=== PATIENT | male | born 1940 | race Caucasian/White ===

== ENCOUNTER 2017-09-18 10:58 | Emergency (ER) | payer MEDICARE, OTHER ==
[~2017-09-18] VITALS: Ht 180.3 cm; Wt 99.0 kg
[~2017-09-18 10:58] MED LIST: ASPI81TA52 PO; CLOP75TA35 PO; COLC0.6T69 PO; EVOL140P SQ; HYDR12.55 PO; INDO25CA PO; LISI-600 PO; METO25TA6 PO; NITR0.4T51 SL
[2017-09-18] MEDS ORDERED: NAPR-56 PO (11:36)
[2017-09-18] MEDS: HYDROcodone/acetaminophen 5mg/325mg tablet PO ONE (11:56)
[2017-09-18 12:03] VITALS: BP 110/65
== END 2017-09-18 12:11 | disposition home or self-care (01) ==
LOC: ER 10:59
DX: M25.462 Effusion, left knee (principal); M17.12 Unilateral primary osteoarthritis, left knee; I25.10 Atherosclerotic heart disease of native coronary artery without angina pectoris; E78.00 Pure hypercholesterolemia, unspecified; M10.9 Gout, unspecified; I10 Essential (primary) hypertension; Z95.1 Presence of aortocoronary bypass graft; Z98.890 Other specified postprocedural states; Z79.82 Long term (current) use of aspirin; Z79.899 Other long term (current) drug therapy
CPT/HCPCS: 73564; 99284

== ENCOUNTER 2019-04-10 21:00 | Emergency (ER) | payer OTHER ==
[~2019-04-10] VITALS: Ht 180.3 cm; Wt 113.6 kg
[~2019-04-10 21:00] MED LIST changes: +INDO-12 PO; -INDO25CA PO
[2019-04-10] MEDS ORDERED: TRAM50TA2 PO (22:22)
[2019-04-10 22:38] VITALS: BP 163/83
== END 2019-04-10 22:43 | disposition home or self-care (01) ==
LOC: ER 21:00
DX: M25.562 Pain in left knee (principal); M25.662 Stiffness of left knee, not elsewhere classified; I25.10 Atherosclerotic heart disease of native coronary artery without angina pectoris; E78.00 Pure hypercholesterolemia, unspecified; I10 Essential (primary) hypertension; Z95.1 Presence of aortocoronary bypass graft; Z98.890 Other specified postprocedural states; Z60.2 Problems related to living alone; Z79.82 Long term (current) use of aspirin; Z79.899 Other long term (current) drug therapy
CPT/HCPCS: 99283

== ENCOUNTER 2019-07-05 01:05 | Emergency (ER) | payer OTHER ==
[~2019-07-05] VITALS: Ht 180.3 cm; Wt 117.0 kg
[~2019-07-05 01:05] MED LIST changes: -EVOL140P SQ; +EVOL140P3 SQ
--- NOTE | 2019-07-05 01:48 | NUR ---
The patient was brought in via EMS for left leg pain but during the triage made suicidal statements and was brought to bed 24 in the ER overflow. He was very friendly and cooperative. He stated that he has had pain all week in his left knee and has been out of his ultram. He stated [facility] and felt he was getting his pain needs addressed. He stated that he lives alone in a trailer and feels very isolated and lonely. He stated that in the past week he has not been able to drive because of the knee pain. He reports that he has a history of depression but has never had a suicide attempt. He stated that in recent days he has been wanting to kill himself and had been thinking about [facility]. He stated "If I had a gun I'd blow my brains out" He stated he doesn't own a gun because of those kinds of thoughts. He reports that he has been having dry heaves. He reports that his pain is in his left knee. He stated that he was supposed to have an MRI of the left knee next week.
--- NOTE | 2019-07-05 02:47 | NUR ---
The patient was reminded that a urine sample is needed.
[2019-07-05] MEDS ORDERED: FLO0.4C PO (02:59)
[2019-07-05] MEDS ORDERED: CHOL200016 PO (02:59)
[2019-07-05 03:01] LABS: BASOPHILS # (AUTO) 0.1 X10'3 (0-0.2); BASOPHILS % (AUTO) 0.7 % (0-1); EOSINOPHILS % (AUTO) 0.2 % (0-6); HEMATOCRIT 36.4 % (42.0-52.0); HEMOGLOBIN 12.5 g/dl (14.0-17.9); LYMPHOCYTES # (AUTO) 0.9 X10'3 (1.1-4.8); LYMPHOCYTES % (AUTO) 9.2 % (21-51); MEAN CORPUSCULAR HGB CONC 34.3 g/dL (33.0-36.5); MEAN CORPUSCULAR VOLUME 96.4 FL (78-98); MEAN PLATELET VOLUME 10.6 FL (7.4-10.4); MONOCYTES # (AUTO) 4.2 X10'3 (0-0.9); MONOCYTES % (AUTO) 44.5 % (2-12); NEUTROPHILS # (AUTO) 4.3 X10'3 (1.8-7.7); NEUTROPHILS % (AUTO) 45.4 % (42-75); PLATELET COUNT 135 X10'3 (140-440); RED BLOOD COUNT 3.78 X10'6 (4.70-6.10); RED CELL DISTRIBUTION WIDTH 14.8 % (11.5-14.5); WHITE BLOOD COUNT 9.4 X10'3 (4.5-11.0)
[2019-07-05] MEDS ORDERED: ALLO100T PO (03:02)
[2019-07-05] MEDS ORDERED: ISOS60TA4 PO (03:04)
[2019-07-05] MEDS ORDERED: ASPI-1264 PO (03:08)
[2019-07-05 03:20] LABS: ALANINE AMINOTRANSFERASE 35 U/L (12-78); ALBUMIN 3.3 G/DL (3.4-5.0); ALBUMIN/GLOBULIN RATIO 0.8 (1.1-1.5); ALKALINE PHOSPHATASE 58 IU/L (46-116); ANION GAP 8 (8-16); ASPARTATE AMINO TRANSFERASE 29 U/L (10-37); BILIRUBIN,TOTAL 0.8 MG/DL (0.1-1.0); BLOOD UREA NITROGEN 23 MG/DL (7-18); BUN/CREATININE RATIO 22.5 (5.4-32.0); CALCIUM 8.8 MG/DL (8.5-10.1); CHLORIDE 107 MMOL/L (99-107); CREATININE 1.02 MG/DL (0.60-1.10); GLUCOSE 134 MG/DL (70-104); POTASSIUM 4.3 MMOL/L (3.5-5.1); SODIUM 140 MMOL/L (135-145); TOTAL CARBON DIOXIDE 24.6 MMOL/L (24-32); TOTAL PROTEIN 7.2 G/DL (6.4-8.2); eGFR 71 ML/MIN
[2019-07-05 03:30] LABS: ETHANOL < 0.010 GM/DL (0.0-0.010)
--- NOTE | 2019-07-05 03:38 | NUR ---
Dr. Sainz at the bedside. The patient provided a urine sample. His med rec was completed.
[2019-07-05] MEDS ORDERED: acetaminophen 325mg tablet PO PRN (03:45)
[2019-07-05 03:53] LABS: URINE AMPHETAMINE SCREEN NEGATIVE (Neg); URINE BARBITUATE SCREEN NEGATIVE (Neg); URINE BENZODIAZEPINES SCREEN NEGATIVE (Neg); URINE CANNABINOID SCREEN NEGATIVE (Neg); URINE COCAINE SCREEN NEGATIVE (Neg); URINE METHADONE SCREEN NEGATIVE (Neg); URINE OPIATE SCREEN NEGATIVE (Neg); URINE PHENCYCLIDINE SCREEN NEGATIVE (Neg)
--- NOTE | 2019-07-05 04:16 | NUR ---
pt packet faxed to [facility]
[2019-07-05 05:38] VITALS: BP_DIAS 88
--- NOTE | 2019-07-05 07:00 | NUR ---
PT RESTING ON BACK WITH EYES OPEN NO NEEDS AT THIS TIME
[2019-07-05 07:23] LABS: LARGE PLATELETS FEW; PLATELET ESTIMATE NORMAL; TOTAL CELLS COUNTED 100
[2019-07-05 07:54] VITALS: BP_SYST 145
[2019-07-05] MEDS ORDERED: metoprolol tartrate 12.5mg (1/2 tablet) PO SCH (08:00)
[2019-07-05] MEDS ORDERED: allopurinol 300 MG tablet PO SCH (08:00)
[2019-07-05] MEDS ORDERED: isosorbide mononitrate 30mg tab.SR.24H PO SCH (08:00)
[2019-07-05] MEDS ORDERED: tamsulosin 0.4mg capsule PO SCH (08:00)
[2019-07-05] MEDS ORDERED: lisinopril 20mg tablet PO SCH (08:00)
[2019-07-05] MEDS ORDERED: aspirin 325mg tablet PO SCH (08:00)
[2019-07-05] MEDS ORDERED: clopidogrel 75mg tablet PO SCH (08:00)
--- NOTE | 2019-07-05 08:30 | NUR ---
PT SITTING UP EATING BREAKFAST. NO NEEDS AT THIS TIME
--- NOTE | 2019-07-05 09:39 | NUR ---
PT RESTING ON BACK, EYES CLOSED, RR EQUAL AND UNLABORED
--- NOTE | 2019-07-05 10:51 | NUR ---
PT AWAKE IN BED. NO NEEDS AT THIS TIME
== END 2019-07-05 14:28 | disposition home or self-care (01) ==
LOC: ER 01:06
DX: F32.9 Major depressive disorder, single episode, unspecified (principal); R45.851 Suicidal ideations; M25.561 Pain in right knee; G89.29 Other chronic pain; I25.10 Atherosclerotic heart disease of native coronary artery without angina pectoris; E78.00 Pure hypercholesterolemia, unspecified; I10 Essential (primary) hypertension; M19.90 Unspecified osteoarthritis, unspecified site; M10.9 Gout, unspecified; F41.0 Panic disorder [episodic paroxysmal anxiety]; Z95.1 Presence of aortocoronary bypass graft; Z98.890 Other specified postprocedural states; Z79.82 Long term (current) use of aspirin; Z79.899 Other long term (current) drug therapy
CPT/HCPCS: 36415; 80053; 80305; 80320; 84443; 85025; 99284

== ENCOUNTER 2019-09-18 07:07 | Day surgery (SDC) | payer MEDICARE, OTHER ==
[2019-09-17 10:34] LABS: BASOPHILS # (AUTO) 0.1 X10'3 (0-0.2); EOSINOPHILS # (AUTO) 0.2 X10'3 (0-0.9); EOSINOPHILS % (AUTO) 2.9 % (0-6); HEMATOCRIT 41.4 % (42.0-52.0); HEMOGLOBIN 13.8 g/dl (14.0-17.9); LYMPHOCYTES # (AUTO) 1.4 X10'3 (1.1-4.8); LYMPHOCYTES % (AUTO) 19.7 % (21-51); MEAN CORPUSCULAR HEMOGLOBIN 32.1 PG (27.0-31.0); MEAN CORPUSCULAR HGB CONC 33.2 g/dL (33.0-36.5); MEAN CORPUSCULAR VOLUME 96.6 FL (78-98); MEAN PLATELET VOLUME 10.4 FL (7.4-10.4); MONOCYTES # (AUTO) 1.9 X10'3 (0-0.9); MONOCYTES % (AUTO) 27.2 % (2-12); NEUTROPHILS # (AUTO) 3.5 X10'3 (1.8-7.7); NEUTROPHILS % (AUTO) 49.2 % (42-75); PLATELET COUNT 203 X10'3 (140-440); RED BLOOD COUNT 4.29 X10'6 (4.70-6.10); RED CELL DISTRIBUTION WIDTH 14.9 % (11.5-14.5); WHITE BLOOD COUNT 7.1 X10'3 (4.5-11.0)
[2019-09-17 10:44] LABS: ALBUMIN 3.6 G/DL (3.4-5.0); ANION GAP 7 (8-16); BLOOD UREA NITROGEN 9 MG/DL (7-18); CALCIUM 9.4 MG/DL (8.5-10.1); CHLORIDE 106 MMOL/L (99-107); GLUCOSE 152 MG/DL (70-104); POTASSIUM 4.1 MMOL/L (3.5-5.1); SODIUM 139 MMOL/L (135-145); eGFR 73 ML/MIN
[2019-09-17 10:45] LABS: PARTIAL THROMBOPLASTIN TIME 27 SECONDS (22-32)
[2019-09-17 11:42] LABS: TOTAL CELLS COUNTED 100
[2019-09-17 11:44] LABS: ELLIPTOCYTES FEW; PLATELET ESTIMATE NORMAL; SMUDGE CELLS FEW; TEAR DROP CELLS FEW
[~2019-09-18] VITALS: Ht 180.3 cm; Wt 112.4 kg
[2019-09-18] VITALS (13 sets, daily range): BP systolic 100–163; BP diastolic 59–83
[~2019-09-18 07:07] MED LIST changes: +ALLO100T PO; +ASPI-1264 PO; -ASPI81TA52 PO; +CHOL200016 PO; -COLC0.6T69 PO; +FLO0.4C PO; -HYDR12.55 PO; -INDO-12 PO; +ISOS60TA4 PO
[2019-09-18] MEDS ORDERED: normal saline 1,000 ML IV SCH (07:20)
[2019-09-18] MEDS ORDERED: diphenhydrAMINE 25mg capsule PO PRN (07:20)
[2019-09-18] MEDS ORDERED: LORazepam 0.5 MG tablet PO PRN (07:20)
[2019-09-18] MEDS ORDERED: LIDOcaine/PRILOcaine 5gm cream TP ONE (07:45)
[2019-09-18] MEDS ORDERED: METO25TA6 PO (08:07)
[2019-09-18] MEDS ORDERED: COLC0.6T69 PO (08:07)
[2019-09-18] MEDS ORDERED: ASPI-611 PO (08:07)
[2019-09-18] MEDS ORDERED: midazolam 2 mg/2 ml injection ONE (08:53)
[2019-09-18] MEDS ORDERED: nitroGLYCERIN-Tridil 50MG/D5W 250 ML IV ONE (08:53)
[2019-09-18] MEDS ORDERED: verapamil 2.5 mg/ml inj IV ONE (08:53)
[2019-09-18] MEDS ORDERED: heparin 1,000unit/ml 10ml vial 10 ML ONE (08:54)
[2019-09-18] MEDS ORDERED: fentaNYL/PF 50MCG/1 ML 2ML syringe ONE (08:54)
[2019-09-18] MEDS ORDERED: iohexol 350MG/ML 100ml bottle IV ONE (08:54)
[2019-09-18] MEDS ORDERED: iohexol 350 MG/ML 50ML vial IV ONE ×2 (08:54→09:37)
[2019-09-18] MEDS ORDERED: LIDOcaine 1% (10mg/ml)w/preservative injection 20ml MDV ONE (08:54)
== END 2019-09-18 17:00 | disposition home or self-care (01) ==
LOC: SSTAY O 07:07
PROVIDERS: ATTEND Internal Medicine Cardiovascular Disease
DX: R06.02 Shortness of breath (principal); T82.868A Thrombosis due to vascular prosthetic devices, implants and grafts, initial encounter; I25.10 Atherosclerotic heart disease of native coronary artery without angina pectoris; E78.5 Hyperlipidemia, unspecified; F32.9 Major depressive disorder, single episode, unspecified; I10 Essential (primary) hypertension; M19.90 Unspecified osteoarthritis, unspecified site; M10.9 Gout, unspecified; E66.9 Obesity, unspecified; Z68.34 Body mass index [BMI] 34.0-34.9, adult; Z95.1 Presence of aortocoronary bypass graft; Y83.2 Surgical operation with anastomosis, bypass or graft as the cause of abnormal reaction of the patient, or of later complication, without mention of misadventure at the time of the procedure; Y92.89 Other specified places as the place of occurrence of the external cause; Z79.01 Long term (current) use of anticoagulants; Z79.899 Other long term (current) drug therapy
CPT/HCPCS: 80048; 85025; 85610; 85730; 93005; 93459; 93567; 99152; 99153; C1769; J1644; J2001; J2250; J3010; J7030; Q0163; Q9967; A4620; A6258; C1760; J3490

== ENCOUNTER → 2020-02-19 | Emergency (ER) | payer OTHER, MEDICARE ==
[~2020-02-19] VITALS: Ht 170.2 cm; Wt 116.8 kg
[~2020-02-19] MED LIST changes: -ASPI-1264 PO; +ASPI-611 PO; -CHOL200016 PO; +COLC0.6T69 PO; +CefTRIAXone/D5W-Rocephin 1gm 50 ML IV ONE; -FLO0.4C PO; +phenazopyridine 100mg tablet ONE; +phenazopyridine 100mg tablet PO ONE
[2020-02-19 03:55] LABS: CLARITY,URINE TURBID (Clear); COLOR,URINE RED (Yellow); GLUCOSE, URINE NEGATIVE (Neg); KETONES,URINE NEGATIVE (Neg); LEUKOCYTE ESTERASE ,URINE SMALL (Neg); NITRITES, URINE NEGATIVE (Neg); OCCULT BLOOD,URINE LARGE (Neg); PH,URINE 6.5 (4.8-8.0); PROTEIN,URINE >=300 mg/dl (Neg); UA COLLECTION TYPE NON-SPECIFIED; UROBILINOGEN,URINE 0.2 E.U/dL (0.2-1.0)
[2020-02-19 03:56] LABS: BASOPHILS # (AUTO) 0.1 X10'3 (0-0.2); BASOPHILS % (AUTO) 0.5 % (0-1); EOSINOPHILS # (AUTO) 0.1 X10'3 (0-0.9); EOSINOPHILS % (AUTO) 1.4 % (0-6); HEMATOCRIT 41.8 % (42.0-52.0); HEMOGLOBIN 13.9 g/dl (14.0-17.9); LYMPHOCYTES # (AUTO) 1.6 X10'3 (1.1-4.8); LYMPHOCYTES % (AUTO) 16.3 % (21-51); MEAN CORPUSCULAR HEMOGLOBIN 32.4 PG (27.0-31.0); MEAN CORPUSCULAR HGB CONC 33.2 g/dL (33.0-36.5); MEAN CORPUSCULAR VOLUME 97.6 FL (78-98); MEAN PLATELET VOLUME 10.9 FL (7.4-10.4); MONOCYTES # (AUTO) 3.1 X10'3 (0-0.9); MONOCYTES % (AUTO) 31.6 % (2-12); NEUTROPHILS % (AUTO) 50.2 % (42-75); PLATELET COUNT 150 X10'3 (140-440); RED BLOOD COUNT 4.28 X10'6 (4.70-6.10); WHITE BLOOD COUNT 9.9 X10'3 (4.5-11.0)
[2020-02-19 04:00] LABS: BACTERIA,URINE 3+ /HPF (Neg); RBC,URINE TNTC /HPF (0-2); SQUAMOUS EPITHELIAL CELL,UR FEW /LPF (FEW); WBC,URINE 50-100 /HPF (0-4)
[2020-02-19 04:02] LABS: ALANINE AMINOTRANSFERASE 38 U/L (12-78); ALKALINE PHOSPHATASE 64 IU/L (46-116); ANION GAP 15 (8-16); ASPARTATE AMINO TRANSFERASE 26 U/L (10-37); BILIRUBIN,TOTAL 0.7 MG/DL (0.1-1.0); BLOOD UREA NITROGEN 13 MG/DL (7-18); BUN/CREATININE RATIO 11.8 (5.4-32.0); CALCIUM 8.9 MG/DL (8.5-10.1); CHLORIDE 104 MMOL/L (99-107); GLUCOSE 157 MG/DL (70-104); POTASSIUM 3.9 MMOL/L (3.5-5.1); SODIUM 140 MMOL/L (135-145); TOTAL CARBON DIOXIDE 21.2 MMOL/L (24-32); eGFR 65 ML/MIN
[2020-02-19 04:15] LABS: PLATELET ESTIMATE NORMAL; TOTAL CELLS COUNTED 100
[2020-02-19 05:22] VITALS: BP 148/78
== END | disposition home or self-care (01) ==
LOC: ER 02:59
DX: N39.0 Urinary tract infection, site not specified (principal); R31.9 Hematuria, unspecified; I25.10 Atherosclerotic heart disease of native coronary artery without angina pectoris; E78.00 Pure hypercholesterolemia, unspecified; I10 Essential (primary) hypertension; M19.90 Unspecified osteoarthritis, unspecified site; F41.9 Anxiety disorder, unspecified; F32.9 Major depressive disorder, single episode, unspecified; Z95.1 Presence of aortocoronary bypass graft; Z60.2 Problems related to living alone; Z72.89 Other problems related to lifestyle; Z79.899 Other long term (current) drug therapy
CPT/HCPCS: 36415; 80053; 81001; 85007; 85025; 85610; 87088; 96365; 99284; J0696

== ENCOUNTER 2020-03-11 19:44 | Emergency (ER) | payer OTHER, MEDICARE ==
[~2020-03-11] VITALS: Ht 180.3 cm; Wt 112.0 kg
[~2020-03-11 19:44] MED LIST changes: -CefTRIAXone/D5W-Rocephin 1gm 50 ML IV ONE; -phenazopyridine 100mg tablet ONE; -phenazopyridine 100mg tablet PO ONE
[2020-03-11 20:16] VITALS: BP 162/90
== END 2020-03-11 21:47 | disposition home or self-care (01) ==
LOC: ER 19:44
DX: M79.89 Other specified soft tissue disorders (principal); I25.10 Atherosclerotic heart disease of native coronary artery without angina pectoris; E78.00 Pure hypercholesterolemia, unspecified; I10 Essential (primary) hypertension; M19.90 Unspecified osteoarthritis, unspecified site; M10.9 Gout, unspecified; F41.9 Anxiety disorder, unspecified; F32.9 Major depressive disorder, single episode, unspecified; Z98.890 Other specified postprocedural states; Z76.89 Persons encountering health services in other specified circumstances; Z72.89 Other problems related to lifestyle; Z79.82 Long term (current) use of aspirin; Z79.899 Other long term (current) drug therapy; Z60.2 Problems related to living alone
CPT/HCPCS: 51702; 99281; 99284

== ENCOUNTER 2021-02-24 18:12 | Emergency (ER) | payer OTHER, MEDICARE ==
[~2021-02-24] VITALS: Ht 180.3 cm; Wt 121.4 kg
[~2021-02-24 18:12] MED LIST changes: +CLOP75TA34 PO; -CLOP75TA35 PO; -COLC0.6T69 PO; +COLC0.6T72 PO; -ISOS60TA4 PO; +ISOS60TA71 PO; -LISI-600 PO; +LISI20TA28 PO; +LOP25T PO; -METO25TA6 PO
[2021-02-24 18:36] VITALS: BP 222/95
[2021-02-24] MEDS ORDERED: LIDOcaine 2% 10ml TOPICAL JELLY (Urojet) MM ONE (20:40)
== END 2021-02-24 21:37 | disposition home or self-care (01) ==
LOC: ER 18:12
DX: K59.00 Constipation, unspecified (principal); I25.10 Atherosclerotic heart disease of native coronary artery without angina pectoris; E78.00 Pure hypercholesterolemia, unspecified; I10 Essential (primary) hypertension; M19.90 Unspecified osteoarthritis, unspecified site; M10.9 Gout, unspecified; F41.9 Anxiety disorder, unspecified; F32.9 Major depressive disorder, single episode, unspecified; Z98.890 Other specified postprocedural states; Z72.89 Other problems related to lifestyle; Z60.2 Problems related to living alone; Z79.82 Long term (current) use of aspirin; Z79.899 Other long term (current) drug therapy
CPT/HCPCS: 99282

== ENCOUNTER 2021-09-29 14:43 | Emergency (ER) | payer OTHER, MEDICARE ==
[~2021-09-29] VITALS: Ht 180.3 cm; Wt 117.7 kg
[2021-09-29] MEDS ORDERED: tranexamic acid 100mg/ml inj. TP ONE (15:55)
[2021-09-29 17:23] VITALS: BP 149/79
== END 2021-09-29 17:24 | disposition home or self-care (01) ==
LOC: ER 14:44
DX: R04.0 Epistaxis (principal); I25.10 Atherosclerotic heart disease of native coronary artery without angina pectoris; E78.00 Pure hypercholesterolemia, unspecified; I10 Essential (primary) hypertension; M19.90 Unspecified osteoarthritis, unspecified site; F41.9 Anxiety disorder, unspecified; F32.A Depression, unspecified; Z98.890 Other specified postprocedural states; Z72.89 Other problems related to lifestyle; Z60.2 Problems related to living alone; Z79.82 Long term (current) use of aspirin; Z79.899 Other long term (current) drug therapy
CPT/HCPCS: 99284; J3490

== ENCOUNTER 2022-02-22 11:03 | Emergency (ER) | payer OTHER, MEDICARE ==
[~2022-02-22] VITALS: Ht 180.3 cm; Wt 111.8 kg
[2022-02-22 11:15] VITALS: BP 161/82
[2022-02-22] MEDS ORDERED: acetaminophen 325mg tablet PO ONE (13:55)
== END 2022-02-22 16:01 | disposition home or self-care (01) ==
LOC: ER 11:04
DX: G89.29 Other chronic pain (principal); M25.562 Pain in left knee; E78.00 Pure hypercholesterolemia, unspecified; I11.9 Hypertensive heart disease without heart failure; F31.9 Bipolar disorder, unspecified; Z98.890 Other specified postprocedural states; Z79.899 Other long term (current) drug therapy; Z79.82 Long term (current) use of aspirin
CPT/HCPCS: 73564; 99283; A6449

== ENCOUNTER 2022-06-28 10:05 | Emergency (ER) | payer OTHER, MEDICARE ==
--- NOTE | 2022-06-28 10:50 | NUR ---
Roe mckeon in [facility] - 06/28/22 at 1054 by PEPE n/a [phone] n/a [phone] n/a [phone]
--- NOTE | 2022-06-28 10:54 | NUR ---
na [id number]
--- NOTE | 2022-06-28 12:07 | NUR ---
NIL [id number]
== END 2022-06-28 12:17 | disposition left against medical advice (07) ==
LOC: ER 10:05
DX: R04.0 Epistaxis (principal); Z53.21 Procedure and treatment not carried out due to patient leaving prior to being seen by health care provider

== ENCOUNTER 2022-11-09 01:21 | Emergency (ER) | payer OTHER, MEDICARE ==
[~2022-11-09] VITALS: Ht 180.3 cm; Wt 107.7 kg
[2022-11-09 01:38] LABS: BASOPHILS # (AUTO) 0.1 X10'3 (0-0.2); BASOPHILS % (AUTO) 0.9 % (0-1); EOSINOPHILS # (AUTO) 0.1 X10'3 (0-0.9); HEMATOCRIT 41.4 % (42.0-52.0); HEMOGLOBIN 13.8 g/dl (14.0-17.9); LYMPHOCYTES # (AUTO) 1.9 X10'3 (1.1-4.8); LYMPHOCYTES % (AUTO) 20.9 % (21-51); MEAN CORPUSCULAR HGB CONC 33.3 g/dL (33.0-36.5); MONOCYTES # (AUTO) 3.3 X10'3 (0-0.9); MONOCYTES % (AUTO) 36.9 % (2-12); NEUTROPHILS # (AUTO) 3.6 X10'3 (1.8-7.7); NEUTROPHILS % (AUTO) 40.3 % (42-75); PLATELET COUNT 120 X10'3 (140-440); RED BLOOD COUNT 4.31 X10'6 (4.70-6.10); RED CELL DISTRIBUTION WIDTH 15.3 % (11.5-14.5); WHITE BLOOD COUNT 8.9 X10'3 (4.5-11.0)
[2022-11-09 01:49] LABS: ALANINE AMINOTRANSFERASE 42 U/L (12-78); ALBUMIN 3.7 G/DL (3.4-5.0); ALBUMIN/GLOBULIN RATIO 1.1 (1.1-1.5); ALKALINE PHOSPHATASE 73 IU/L (46-116); ANION GAP 11 (8-16); ASPARTATE AMINO TRANSFERASE 31 U/L (10-37); BILIRUBIN,TOTAL 0.3 MG/DL (0.1-1.0); BLOOD UREA NITROGEN 19 MG/DL (7-18); BUN/CREATININE RATIO 19.8 (10.0-20.0); CALCIUM 8.8 MG/DL (8.5-10.1); CHLORIDE 107 MMOL/L (99-107); CREATININE 0.96 MG/DL (0.60-1.10); GLUCOSE 139 MG/DL (70-104); SODIUM 141 MMOL/L (135-145); TOTAL CARBON DIOXIDE 23.1 MMOL/L (24-32); eGFR 76 ML/MIN
[2022-11-09 01:55] LABS: MAGNESIUM 2.3 MG/DL (1.5-2.4)
[2022-11-09 03:37] LABS: TOTAL CELLS COUNTED 100
[2022-11-09 03:38] LABS: BURR CELLS FEW; PLATELET ESTIMATE DECREASED; TEAR DROP CELLS FEW
[2022-11-09 03:39] LABS: ELLIPTOCYTES FEW; LARGE PLATELETS FEW; SMUDGE CELLS FEW
[2022-11-09 06:21] VITALS: BP 195/96
== END 2022-11-09 06:22 | disposition home or self-care (01) ==
LOC: ER 01:21
DX: R07.9 Chest pain, unspecified (principal); I11.9 Hypertensive heart disease without heart failure; E78.00 Pure hypercholesterolemia, unspecified; Z79.899 Other long term (current) drug therapy
CPT/HCPCS: 36415; 71045; 80053; 83735; 83880; 84484; 85007; 85025; 93005; 99285

== ENCOUNTER 2023-08-07 19:23 | Emergency (ER) | payer OTHER, MEDICARE ==
[~2023-08-07] VITALS: Ht 180.3 cm; Wt 109.8 kg
[2023-08-07 20:17] LABS: BASOPHILS # (AUTO) 0.1 X10'3 (0-0.2); HEMOGLOBIN 13.5 g/dl (14.0-17.9)
[2023-08-07 20:19] LABS: BASOPHILS % (AUTO) 0.8 % (0-1); EOSINOPHILS % (AUTO) 0.3 % (0-6); HEMATOCRIT 39.7 % (42.0-52.0); LYMPHOCYTES # (AUTO) 0.8 X10'3 (1.1-4.8); LYMPHOCYTES % (AUTO) 7.9 % (21-51); MEAN CORPUSCULAR HEMOGLOBIN 32.2 PG (27.0-31.0); MEAN CORPUSCULAR HGB CONC 33.9 g/dL (33.0-36.5); MEAN CORPUSCULAR VOLUME 95.2 FL (78-98); MONOCYTES # (AUTO) 6.3 X10'3 (0-0.9); MONOCYTES % (AUTO) 65.5 % (2-12); NEUTROPHILS # (AUTO) 2.4 X10'3 (1.8-7.7); NEUTROPHILS % (AUTO) 25.5 % (42-75); PLATELET COUNT 100 X10'3 (140-440); RED BLOOD COUNT 4.18 X10'6 (4.70-6.10); RED CELL DISTRIBUTION WIDTH 15.4 % (11.5-14.5); WHITE BLOOD COUNT 9.6 X10'3 (4.5-11.0)
[2023-08-07 20:32] LABS: ALANINE AMINOTRANSFERASE 73 U/L (12-78); ALBUMIN 3.6 G/DL (3.4-5.0); ALKALINE PHOSPHATASE 77 IU/L (46-116); ANION GAP 10 (8-16); ASPARTATE AMINO TRANSFERASE 60 U/L (10-37); BILIRUBIN,TOTAL 0.5 MG/DL (0.1-1.0); BLOOD UREA NITROGEN 17 MG/DL (7-18); BUN/CREATININE RATIO 17.5 (10.0-20.0); CALCIUM 8.5 MG/DL (8.5-10.1); CHLORIDE 106 MMOL/L (99-107); CREATININE 0.97 MG/DL (0.60-1.10); GLUCOSE 167 MG/DL (70-104); POTASSIUM 4.1 MMOL/L (3.5-5.1); SODIUM 140 MMOL/L (135-145); TOTAL CARBON DIOXIDE 24.3 MMOL/L (24-32); TOTAL PROTEIN 7.2 G/DL (6.4-8.2); eCRCL 65 ML/MIN; eGFR 74 ML/MIN
[2023-08-07 20:40] LABS: PRO BRAIN NATRIURETIC PEPTIDE 381 PG/ML (0-450)
[2023-08-07 20:54] LABS: LARGE PLATELETS FEW; PLATELET ESTIMATE DECREASED; TEAR DROP CELLS FEW; TOTAL CELLS COUNTED 100
[2023-08-07] MEDS ORDERED: NIRM1TAB7 PO (21:04)
[2023-08-07 21:17] VITALS: BP 139/71; PULSE 85; RESP 20; TEMP 98.4; O2SAT 92
== END 2023-08-07 21:33 | disposition home or self-care (01) ==
LOC: ER 19:23
DX: U07.1 COVID-19 (principal); R50.9 Fever, unspecified; E78.00 Pure hypercholesterolemia, unspecified; I10 Essential (primary) hypertension; E11.9 Type 2 diabetes mellitus without complications; M19.90 Unspecified osteoarthritis, unspecified site; Z79.899 Other long term (current) drug therapy; Z79.82 Long term (current) use of aspirin
CPT/HCPCS: 36415; 71045; 80053; 83880; 84145; 84484; 85007; 85025; 87040; 87502; 87503; 87634; 87811; 93005; 99285

== ENCOUNTER 2025-01-04 | Emergency (ER) | payer OTHER ==
[~2025-01-04] VITALS: Ht 180.3 cm; Wt 108.2 kg
[~2025-01-04] MED LIST changes: +NIRM1TAB7 PO
--- NOTE | 2025-01-04 01:10 | RADIOLOGY REPORT ---
Exam: DI ABDOMEN,SINGLE VIEW(KUB) Indication: constipation Comparison: None Technique: 2 radiographic views of the abdomen. FINDINGS/IMPRESSION: Nonspecific bowel gas pattern. Moderate stool burden. Degenerative changes of the visualized osseous structures.
--- NOTE | 2025-01-04 01:57 | Physician Documentation ---
History of Present Illness ~ Chief Complaint: Constipation Stated Complaint: BOWEL ISSUES Time Seen by MD: 01:36 Primary Medical Doctor: [facility] Mode of Arrival: POV HPI 84-year-old male who presents with constipation. He tells me that he has had trouble with constipation for at least 10 years. He tells me that recently over the past couple of weeks he has been taking a cocktail of laxatives that was prescribed by the [place]. he tells me that he is having some intermittent loose stools and small bowel movements, but that he is having a hard time having a good bowel movement and has to strain to get anything to pass. He did try disimpacted himself but there was no hard stool ball. He denies any fevers, nausea, vomiting, or abdominal pain. No blood in the stool. He does have a hemorrhoid. He tells me he came in tonight because he lives alone, and he felt anxious and was concerned that there may be a problem with the muscles that control his bowel movements. He repeatedly states I live alone and I do not have anyone to take care of me. No other acute concerns. Medication Reconciliation Allergies: Coded Allergies: No Known Allergies (Unverified , 01/04/25) Scheduled Allopurinol* (Allopurinol*), 300 MG PO DAILY, (Reported) Aspirin (Aspir 81), 1 TAB PO DAILY, (Reported) Clopidogrel Bisulfate (Clopidogrel), 1 TABLET PO DAILY, (Reported) Colchicine (Colchicine), 1 TAB PO DAILY, (Reported) Evolocumab (Repatha Sureclick), 1 ML SQ Q2W, (Reported) Isosorbide Mononitrate (Isosorbide Mononitrate Er), 1 TAB PO DAILY, (Reported) Lisinopril (Lisinopril), 1 TAB PO DAILY, (Reported) Metoprolol Tartrate* (Lopressor tablet*), 1 TAB PO Q12H, (Reported) Nirmatrelvir/Ritonavir (Paxlovid 150-100 mg Dose Pack), 1 TAB PO BID Scheduled PRN Nitroglycerin SL* (Nitrostat SL*), 1 TAB SL Q5MIN PRN for Chest pain Q5min PRNx3-call MD, (Reported) Past Medical History Past Medical History: Coronary Artery Disease, High Cholesterol, Hypertension, Hemorrhoids, Manohar's Disease, Diabetes, Arthritis, Gout, Anxiety, Depression, Panic Disorder Past Surgical History: coronary bypass surgery, orthopedic surgeries Patient History: (Cancer) Malignant carcinoid tumor FATHER, , Age: 80, Cause: Lymphoma Alcohol Use: Occasionally Drug Use: none Lives with: Alone Lives In: Home Occupation: retired Review of Systems Constitutional: Denies: fever Gastrointestinal: Reports: constipated; Denies: abdominal pain Physical Exam Vital Signs: Temperature: 97.2, Heart Rate: 68, Respiratory Rate: 16, BP: 178 /90, Pulse Oximetry: 98, Weight: 108.150 Oxygen Flow Rate: 0 Physical Exam General: This is an anxious appearing older man, sitting quietly in bed HEENT: Atraumatic, oropharynx is moist Heart: Regular rate and rhythm, normal-appearing peripheral perfusion Lungs: normal work of breathing, normal oxygen saturation on room air Abdomen: Soft, nondistended, nontender all quadrants, no rebound or guarding, no palpable colon Neuro: Alert and oriented Psychiatric: Appears quite anxious but is cooperative with exam Progress Results/Orders Results/Orders Vital Signs 01/04/25 01/04/25 01/04/25 01/04/25 00:01 01:07 01:19 02:03 Temp 97.2 97.2 Pulse 84 68 88 Resp 22 16 16 16 B/P (MAP) 186/98 178/90 (119) 161/81 Pulse Ox 97 98 98 O2 Flow Rate 0 0 EKG/XRAY/CT/US/VASC/MRI Abdominal X-Ray : Additional Comment I personally reviewed the x-ray, and it shows: No obstructive gas pattern, significant stool in the colon, no evidence of small-bowel obstruction Medical Decision Making Assessment The patient presents with chronic constipation, with no abdominal pain, vomiting, or any other concerning symptoms. His abdominal exam is benign. It appears most likely he presented to the ER today related to anxiety, and not actually related to any dangerous intra-abdominal process. He is already on appropriate treatments for constipation, has already tried dietary changes, has close follow up with the [facility]. X-ray was obtained from triage that does not show signs of a bowel obstruction. I do not feel that any further workup or testing is indicated today. He was reassured, given home care instructions including instructions on how to do an enema properly, and discharged with ongoing laxatives outpatient follow up. Departure Time of Disposition: 01:56 Disposition: 01 HOME / SELF CARE / HOMELESS Impression: Primary Impression: Constipation Additional Impression: Anxiety Condition: Stable Discharge Instructions: Constipation, Adult Referrals: NO PRIMARY CARE PROVIDER (PCP) Education Educated: Patient Educated regarding: diagnosis, treatment, need for follow up Signature Scribe Signature: na Attestation: JOSE Barrera MD Jan 04, 2025 01:57
[2025-01-04 02:03] VITALS: BP 161/81; PULSE 88; RESP 16; TEMP 97.2; O2SAT 98
== END 2025-01-04 02:07 | disposition home or self-care (01) ==
LOC: ER 00:01
DX: K59.00 Constipation, unspecified (principal); E11.9 Type 2 diabetes mellitus without complications; E78.00 Pure hypercholesterolemia, unspecified; F41.9 Anxiety disorder, unspecified; I10 Essential (primary) hypertension; I25.10 Atherosclerotic heart disease of native coronary artery without angina pectoris; M19.90 Unspecified osteoarthritis, unspecified site; Z95.1 Presence of aortocoronary bypass graft; F32.A Depression, unspecified
CPT/HCPCS: 74018; 99283

== ENCOUNTER 2025-01-19 14:37 | Emergency (ER) | payer OTHER, MEDICARE ==
[~2025-01-19] VITALS: Ht 180.3 cm; Wt 115.8 kg
[2025-01-19 14:40] VITALS: BP 175/86; PULSE 94; RESP 18; TEMP 98.3; O2SAT 95
[2025-01-19] MEDS: bacitracin 15gm ointment TP ONE (15:48)
--- NOTE | 2025-01-19 15:48 | Physician Documentation ---
History of Present Illness ~ Chief Complaint: Wound Stated Complaint: SEE CHIEF-BLOOD THINNERS Time Seen by MD: 15:37 Primary Medical Doctor: [facility] HPI This is an 84-year-old male on blood thinners who presents to the emergency department due to concerns for persistent bleeding to a scab on the left chest that he picked earlier today. Bleeding controlled in triage with a napkin. He is also noted to have numerous open areas above the previously bleeding area to the chest. He is also noted to have scabbed areas to the upper right arm. Patient admits that he is a "potato picker." Tetanus within 5 years?: No (2019) Medication Reconciliation Allergies: Coded Allergies: No Known Allergies (Unverified , 01/19/25) Scheduled Allopurinol* (Allopurinol*), 300 MG PO DAILY, (Reported) Aspirin (Aspir 81), 1 TAB PO DAILY, (Reported) Clopidogrel Bisulfate (Clopidogrel), 1 TABLET PO DAILY, (Reported) Colchicine (Colchicine), 1 TAB PO DAILY, (Reported) Evolocumab (Repatha Sureclick), 1 ML SQ Q2W, (Reported) Isosorbide Mononitrate (Isosorbide Mononitrate Er), 1 TAB PO DAILY, (Reported) Lisinopril (Lisinopril), 1 TAB PO DAILY, (Reported) Metoprolol Tartrate* (Lopressor tablet*), 1 TAB PO Q12H, (Reported) Nirmatrelvir/Ritonavir (Paxlovid 150-100 mg Dose Pack), 1 TAB PO BID Scheduled PRN Nitroglycerin SL* (Nitrostat SL*), 1 TAB SL Q5MIN PRN for Chest pain Q5min PRNx3-call MD, (Reported) Past Medical History Past Medical History: Coronary Artery Disease, High Cholesterol, Hypertension, Hemorrhoids, Manohar's Disease, Diabetes, Arthritis, Gout, Anxiety, Depression, Panic Disorder Past Surgical History: coronary bypass surgery, orthopedic surgeries Patient History: (Cancer) Malignant carcinoid tumor FATHER, , Age: 80, Cause: Lymphoma Alcohol Use: Occasionally Drug Use: none Lives with: Alone Lives In: Home Occupation: retired Review of Systems ROS As stated above in the HPI, otherwise all systems are reviewed and negative. Physical Exam Vital Signs: Temperature: 98.3, Source: Temporal, Heart Rate: 94, Respiratory Rate: 18, BP: 175/86, Pulse Oximetry: 95, Weight: 115.800 Oxygen Flow Rate: 0 Physical Exam General: Alert, no apparent distress. Neck: Full range of motion. Respiratory: Lungs clear, no respiratory distress. Chest: No accessory muscle use. Cardiovascular: Regular rate and rhythm, no murmurs. Gastrointestinal: Soft, nontender, nondistended. Bowels sounds present. Extremities: Normal range of motion, no deformity. Neurologic: Oriented x4. Psychiatric: Normal mood and affect. Skin: Normal color, warm and dry. No edema, no ecchymosis. Numerous superficial open and scabbing areas left upper chest and right upper outer arm. None appear infected. No active bleeding on exam. Progress Results/Orders Results/Orders Orders - GARRETT HALE NP Dressing Orders (01/19/25 15:38) Wound Care Orders (01/19/25 15:38) Completed Orders - GARRETT HALE NP Bacitracin Ointment (Bacitracin Ointment (01/19/25 15:40) Vital Signs 01/19/25 14:40 Temp 98.3 Pulse 94 Resp 18 B/P (MAP) 175/86 Pulse Ox 95 O2 Flow Rate 0 Medical Decision Making Differential Dx:Considerations: Include: Abscess, Cellulitis, Dressing change, Healing wound Departure Time of Disposition: 15:49 Disposition: 01 HOME / SELF CARE / HOMELESS Impression: Primary Impression: Wound Condition: Stable Discharge Instructions: How to Change Your Wound Dressing Additional Instructions: Don't pick at scabs and wounds. It may help to leave them covered as much as possible. Return if worse, otherwise followup with your primary care. Referrals: NO PRIMARY CARE PROVIDER (PCP) Education Educated: Patient Educated regarding: diagnosis, treatment, prognosis, need for follow up Signature Scribe Signature: x Attestation: The note accurately reflects work and decisions made by me.Garrett Mcelroy NP 01/19/25 15:48 GARRETT HALE NP Jan 19, 2025 15:48
== END 2025-01-19 15:56 | disposition home or self-care (01) ==
LOC: ER 14:38
DX: S20.302A Unspecified superficial injuries of left front wall of thorax, initial encounter (principal); F41.9 Anxiety disorder, unspecified; F32.A Depression, unspecified; E11.9 Type 2 diabetes mellitus without complications; I10 Essential (primary) hypertension; E78.00 Pure hypercholesterolemia, unspecified; I25.10 Atherosclerotic heart disease of native coronary artery without angina pectoris; M19.90 Unspecified osteoarthritis, unspecified site; Z95.1 Presence of aortocoronary bypass graft; Z79.899 Other long term (current) drug therapy; Z79.82 Long term (current) use of aspirin; Z72.89 Other problems related to lifestyle; Z60.2 Problems related to living alone; X58.XXXA Exposure to other specified factors, initial encounter; Y93.89 Activity, other specified; Y92.89 Other specified places as the place of occurrence of the external cause; Y99.8 Other external cause status
CPT/HCPCS: 99282

== ENCOUNTER 2025-02-12 05:57 | Day surgery (SDC) | payer MEDICARE, OTHER ==
[~2025-02-12] VITALS: Ht 180.3 cm; Wt 107.8 kg
[2025-02-12] VITALS (13 sets, daily range): BP systolic 129–172; BP diastolic 72–91; PULSE 67–83; RESP 10–20; TEMP 97.7; O2SAT 94–99
--- NOTE | 2025-02-12 06:33 | ELECTROCARDIOGRAPH REPORT ---
[facility] Test Date: 2025-02-12 Test Time: 06:31:42 Pat Name: VIRIDIANA HERNANDEZ Department: [facility] Patient ID: [id number] Room: Gender: M Oral Hygienist: MELI : 1940 Requested By: CARMEN DONNELLY Order Number: [id number] Reading MD: Dr. FLORENTINO Donnelly Measurements Intervals [place] Rate: 82 P: 28 WI: 148 QRS: 32 QRSD: 109 T: -7 QT: 383 QTc: 448 Interpretive Statements Sinus rhythm Abnormal R-wave progression, early transition Borderline repolarization abnormality Electronically Signed On 02-12-2025 16:54:[address] FLORENTINO Donnelly Please click the below link to view image of tracing.
[2025-02-12] MEDS ORDERED: METO-395 PO (07:02)
[2025-02-12] MEDS ORDERED: FURO20TA4 PO (07:02)
[2025-02-12] MEDS ORDERED: ASPI-103 PO (07:06)
[2025-02-12] MEDS ORDERED: FINA5TAB11 PO (07:06)
[2025-02-12] MEDS ORDERED: LIDOcaine 1% 30ml preserv. free vial ONE (07:42)
[2025-02-12] MEDS ORDERED: midazolam 1 mg/ML 2ml injection ONE (07:42)
[2025-02-12] MEDS ORDERED: verapamil 2.5 mg/ml inj IV ONE (07:42)
[2025-02-12] MEDS ORDERED: fentaNYL/PF 50MCG/1 ML 2ML syringe ONE (07:43)
[2025-02-12] MEDS ORDERED: nitroGLYCERIN 500mcg/5mL D5W 5 ML IV ONE (07:43)
[2025-02-12] MEDS ORDERED: heparin 1,000unit/ml 10ml vial 10 ML ONE (07:43)
[2025-02-12] MEDS ORDERED: iohexol 350 MG/ML 50ML vial IV ONE (07:43)
[2025-02-12 07:45] LABS: MEAN PLATELET VOLUME 10.4 FL (7.4-10.4); RED CELL DISTRIBUTION WIDTH 15.2 % (11.5-14.5)
[2025-02-12 07:48] LABS: APTT 27 SECONDS (22-32); INR 1.1 INR
[2025-02-12 07:49] LABS: CREATININE 0.90 MG/DL (0.60-1.10); TOTAL CARBON DIOXIDE 21.4 MMOL/L (24-32); eCRCL 67 ML/MIN; eGFR 81 ML/MIN
[2025-02-12 08:47] LABS: EOSINOPHILS % (MANUAL) 2.0 % (0-6); LYMPHOCYTES % (MANUAL) 14.0 % (21-51); MONOCYTES % (MANUAL) 42.0 % (2-12); NEUTROPHILS % (MANUAL) 42.0 % (42-75)
[2025-02-12 10:37] LABS: PLATELET ESTIMATE NORMAL
[2025-02-12] MEDS ORDERED: HYDROcodone/acetaminophen 5mg/325mg tablet PO PRN (11:00)
[2025-02-12] MEDS ORDERED: HYDROcodone/acetaminophen 10/325mg tab PO PRN (11:00)
[2025-02-12] MEDS: normal saline 1000ml 1,000 ML IV SCH (11:03)
--- NOTE | 2025-02-13 06:39 | CARDIOLOGY REPORT ---
DATE OF SERVICE: 02/12/2025 DICTATING PHYSICIAN: FLORENTINO Swanson MD CARDIAC CATHETERIZATION GENDER: Male. AGE: 84 years. HEIGHT: 180 cm. WEIGHT: 107.8 kg. BODY SURFACE AREA: 2.27 m2. PRIMARY PHYSICIAN: , [facility]. DIRECTOR SOCIAL: FLORENTINO Swanson MD INDICATION: The patient is an 84-year-old male with a history of hypertension, hyperlipidemia, CAD, CABG with a progressive exertional fatigue and shortness of breath. In 1998, he had a CABG x [address] Mcguire. At that time, he got maguire to , LAD, SVG to OM and SVG to diagonal, SVG to RCA. On 12/08/2014, the patient had PTCA stenting of 80% narrowing of OM with /20 Promus stent with good flow. His last angiogram in 2019 showed that 2/4 grafts are patent, namely MAGUIRE to LAD plus patent SVG to OM had 30% narrowing and 2/4 grafts are occluded, namely SVG to diagonal, SVG to PDA. The patient has been having intermittent episodes of chest pain, resolved with sublingual nitroglycerin. The patient in the office prior positive stress test prefers to proceed with definitive evaluation coronary angiography. Risks, benefits, alternative options discussed. Informed consent obtained. PROCEDURE TECHNIQUE: Initially, ultrasound-guided left radial approach was tried; however, access could not be accessed and hence to a right femoral arterial approach, a 6-Comoran right femoral arterial sheath. Post-procedure access site hemostasis secured with manual compression. The patient tolerated the procedure well. COMPLICATIONS: None. PROCEDURES DONE: * Ultrasound-guided right femoral artery visualization and access. * Right femoral arteriogram. * Left heart catheterization. * LVG. * Coronary cineangiography. * MAGUIRE injection. * Graft cineangiography. * Conscious sedation time of 45 minutes. FINDINGS: HEMODYNAMICS: Aortic systolic 128, diastolic 63, mean 76 mmHg. LVEDP of 13 mmHg. There is no significant gradient across the aortic valve. LVG, overall left ventricular systolic function with an LV ejection fraction of 65%. The patient's all the coronary arteries are at least moderately calcified. Left main coronary artery is engaged with JL4 catheter in the right radial approach. Moderately diffusely calcified vessel about 2.5 mm in diameter and has calcification. LAD is 100% occluded, at the ostium . circumflex artery is calcified with moderate narrowing in the proximal portion. About 50% long narrowing. Om 1 is 100% occluded. distal OM 2 mm caliber with mild irregularities. There are lgdr-iq-ndumb collaterals opacifying distal RCA. Right coronary artery is a dominant vessel arising from right aortic sinus . Right coronary ostium has 90% narrowing and distally 100% occluded. There are pvzd-[id number] collateral opacifying the distal RCA. GRAFTS: Two out of four grafts were patent, namely MAGUIRE to LAD, engaged with MAGUIRE catheter. Normal distal anastomosis. LAD itself is 2.5 mm caliber with mild luminal irregularities. Maguire injection opacifies mid l LAD and septal oil and gas principal and diagonal branch. SVG to OM is patent and engaged with JR4 catheter. Stent in the mid graft is widely patent. There is about 30% narrowing in the graft. The OM itself is a 2.25-mm caliber with retrograde filling, it opacified another small OM. Two out of four grafts were occluded, namely SVG to diagonal occluded. SVG to RCA is occluded. IMPRESSION: An 84-year-old male with LV ejection fraction of 65%. LVEDP of 13 mmHg with no gradient across the aortic valve. Left main moderately diffusely calcified vessel. LAD 100% occluded. Proximal circumflex with long 40-50% narrowing. OM 100% occluded. RCA ostial 95% narrowing and distally 100% occluded. Two out of four grafts patent, namely MAGUIRE to LAD patent and SVG to OM patent. SVG has 30% narrowing. Two out of four grafts are occluded, namely SVG to diagonal and SVG to RCA occluded and cqvm-ly-gyvqu collaterals . RECOMMENDATIONS: Continue diet, weight loss, and exercise program and recommend EECP. FLORENTINO Swanson MD TID: [id number] RECEIPT: [id number] ALEXANDR/CORRY/RUMA cc: Hoda CARLOS
== END 2025-02-12 15:30 | disposition home or self-care (01) ==
LOC: SSTAY O 05:57
PROVIDERS: ATTEND Internal Medicine Cardiovascular Disease
DX: I25.10 Atherosclerotic heart disease of native coronary artery without angina pectoris (principal); I25.810 Atherosclerosis of coronary artery bypass graft(s) without angina pectoris; R94.31 Abnormal electrocardiogram [ECG] [EKG]; I10 Essential (primary) hypertension; E11.9 Type 2 diabetes mellitus without complications; E78.5 Hyperlipidemia, unspecified; I35.0 Nonrheumatic aortic (valve) stenosis; Z79.82 Long term (current) use of aspirin; Z79.899 Other long term (current) drug therapy; Z95.1 Presence of aortocoronary bypass graft; Z95.5 Presence of coronary angioplasty implant and graft
CPT/HCPCS: 80048; 85025; 85610; 85730; 93005; 93459; 99152; 99153; A4615; A6258; A6402; C1725; C1894; J1644; J2003; J2250; J3010; J3490; J7030; Q0163; Q9967; Z7610; 85007; A6449

== ENCOUNTER 2025-03-30 19:39 | Emergency (ER) | payer OTHER, MEDICARE ==
[~2025-03-30] VITALS: Ht 180.3 cm; Wt 107.6 kg
[~2025-03-30 19:39] MED LIST changes: +ASPI-103 PO; -ASPI-611 PO; -COLC0.6T72 PO; -EVOL140P3 SQ; +FINA5TAB11 PO; +FURO20TA4 PO; -LOP25T PO; +METO-395 PO; -NIRM1TAB7 PO
[2025-03-30 19:55] VITALS: BP 156/69; PULSE 63; RESP 16; TEMP 98; O2SAT 97
[2025-03-30] MEDS ORDERED: GABA300C PO (21:36)
--- NOTE | 2025-03-30 21:37 | Physician Documentation ---
History of Present Illness ~ Chief Complaint: Ankle pain Stated Complaint: FEET PAIN/SWELLING Time Seen by MD: 20:52 Primary Medical Doctor: [facility] [facility] HPI 84-year-old male who is a [place] patient presents complaining of numbness and tingling in his bilateral lower extremities. Says he has been [facility] however the [facility] did not work and he stopped taking it. Patient indicates that he is a diabetic with an A1c of 8.3. States that the numbness and tingling is worse at night. He is that he believes he is compliant with his medications. Denies any injury or wounds to his feet. Tetanus witin 5 years: No (2019) Medication Reconciliation Allergies: Coded Allergies: No Known Allergies (Unverified , 01/19/25) Scheduled Allopurinol* (Allopurinol*), 300 MG PO DAILY, (Reported) Aspirin (Aspirin), 1 TAB PO DAILY, (Reported) Clopidogrel Bisulfate (Clopidogrel), 1 TABLET PO DAILY, (Reported) Finasteride (PROSCAR tablet), 1 TAB PO DAILY, (Reported) Furosemide (Furosemide), 1 TAB PO DAILY, (Reported) Gabapentin (Neurontin), 1 CAP PO HS Isosorbide Mononitrate (Isosorbide Mononitrate Er), 1 TAB PO DAILY, (Reported) Lisinopril (Lisinopril), 1 TAB PO DAILY, (Reported) Metoprolol Succinate (Metoprolol Succinate), 0.5 TAB PO DAILY, (Reported) Scheduled PRN Nitroglycerin SL* (Nitrostat SL*), 1 TAB SL Q5MIN PRN for Chest pain Q5min PRNx3-call MD, (Reported) Past Medical History Past Medical History: Coronary Artery Disease, High Cholesterol, Hypertension, Hemorrhoids, Manohar's Disease, Diabetes, Arthritis, Gout, Anxiety, Depression, Panic Disorder Past Surgical History: coronary bypass surgery, orthopedic surgeries Patient History: (Cancer) Malignant carcinoid tumor FATHER, , Age: 80, Cause: Lymphoma Alcohol Use: Occasionally Drug Use: none Lives with: Alone Lives In: Home Occupation: retired Review of Systems All Other Systems at this time: Reviewed and Negative ROS As stated above in the HPI, otherwise all systems are reviewed and negative. Physical Exam Vital Signs: Temperature: 98.0, Source: Oral, Heart Rate: 63, Respiratory Rate: 16, BP: 156/69, Pulse Oximetry: 97, Weight: 107.600 Physical Exam General: Alert, no apparent distress. Respiratory: Lungs clear, no respiratory distress. Cardiovascular: Regular rate and rhythm, no murmurs. Gastrointestinal: Soft, nontender, nondistended. Bowels sounds present. Extremities: Normal range of motion, no deformity. Neurologic: Oriented x4. Psychiatric: Normal mood and affect. Skin: Normal color, warm and dry. No edema, no ecchymosis. Progress Results/Orders Results/Orders Completed Orders - HUMPHREY STUART NP Gabapentin Capsule (Neurontin Capsule) (03/30/25 21:25) Medications Received in ER Medications (Trade) Dose Ordered Sig/Raquel Route PRN Reason Start Time Stop Time Status Last Admin Dose Admin (Neurontin capsule) 300 mg ONCE ONCE PO 03/30/25 21:25 03/30/25 21:26 DC 03/30/25 21:30 300 MG Vital Signs 03/30/25 19:55 Temp 98.0 Pulse 63 Resp 16 B/P (MAP) 156/69 Pulse Ox 97 Medical Decision Making Findings This patient presents with poorly controlled diabetes based on his 8.3 A1c. His symptoms that he describes are indications for peripheral neuropathy. He does not take any neuropathic drugs at this time going to start him on gabapentin short-term. I advised him he for him to follow up with his [facility] provider in order to better manage his diabetes and obtain further prescriptions for gabbapentin Foot Diff Dx:Considerations: Include: Abrasion, Arthritis, Cellulitis, Contusion, Dislocation, DJD, Fracture-metatarsal, Fracture-phalynx, Fracture- tarsal, Gout, Hematoma, Ingrown toenail, Laceration, Malunion, Neurovascular injury, Open fracture, Paronychia, Puncture, Rheumatoid, Sprain, Septic, Subungual hematoma, Ulcer, Other Toe Diff Dx:Considerations: Include: Abrasion, Cellulitis, Contusion, Dislocation, Felon, Fracture, Hematoma, Laceration, Neurovascular injury, Open fracture, Paronychia, Subungual hematoma, Other Departure Disposition: HOME / SELF CARE / HOMELESS Impression: Primary Impression: Peripheral neuropathy Additional Impression: Uncontrolled diabetes mellitus Discharge Instructions: Peripheral Neuropathy Additional Instructions: Police follow up with your [facility] provider for further prescriptions of gabapentin. I recommend on working with the your provider to lower your A1c in order to reduce your peripheral neuropathy.. Referrals: NO PRIMARY CARE PROVIDER (PCP) Prescriptions Gabapentin (Neurontin) 300 Mg Capsule 1 CAP PO HS for 30 Days, #30 CAP 0 Refills Prov: HUMPHREY STUART NP 03/30/25 Signature Scribe Signature: h Attestation: Scribed for Humphrey Stuart Shuttle Spotter by Humphrey Mcelroy NP . 03/31/25 00:08 HUMPHREY STUART NP Mar 30, 2025 21:37
== END 2025-03-30 21:47 | disposition home or self-care (01) ==
LOC: ER 19:39
DX: E11.42 Type 2 diabetes mellitus with diabetic polyneuropathy (principal); E11.65 Type 2 diabetes mellitus with hyperglycemia; F41.9 Anxiety disorder, unspecified; F32.A Depression, unspecified; E78.00 Pure hypercholesterolemia, unspecified; I10 Essential (primary) hypertension; I25.10 Atherosclerotic heart disease of native coronary artery without angina pectoris; M19.90 Unspecified osteoarthritis, unspecified site; Z87.19 Personal history of other diseases of the digestive system; Z95.1 Presence of aortocoronary bypass graft; Z79.82 Long term (current) use of aspirin; Z79.899 Other long term (current) drug therapy; Z72.89 Other problems related to lifestyle; Z60.2 Problems related to living alone
CPT/HCPCS: 99283

== ENCOUNTER 2025-06-09 22:14 | Emergency (ER) | payer OTHER ==
[~2025-06-09] VITALS: Ht 180.3 cm; Wt 107.2 kg
[~2025-06-09 22:14] MED LIST changes: +GABA300C PO
--- NOTE | 2025-06-09 23:32 | RADIOLOGY REPORT ---
EXAM: DI ABDOMEN,SINGLE VIEW(KUB) INDICATION: Constipation/Obstruction COMPARISON: DI ABDOMEN,SINGLE VIEW(KUB) on DOS: 01/04/25 TECHNIQUE: 2 radiographic views of the abdomen. FINDINGS: Visualized portions of the lung bases are clear. Median sternotomy sutures. Nonobstructive bowel gas pattern noted. There is no definite evidence for pneumoperitoneum. No abnormal calcifications noted. IMPRESSION: 1. Nonobstructive bowel gas pattern.
--- NOTE | 2025-06-09 23:37 | Physician Documentation ---
History of Present Illness ~ Chief Complaint: Constipation Stated Complaint: CONSTIPATION Time Seen by MD: 23:50 Primary Medical Doctor: [facility] clinic HPI 82-year-old male presents to the emergency department with concerns of tenesmus, constipation due to dysmotility and change in stool caliber. Last colonoscopy eight years ago with polyps. There is a distally been mild change in stool color. He does take daily laxatives. Patient is pending bone marrow aspiration results because of leukocytosis. No reported fever and night sweats. No unintentional weight loss. Patient is follow up with the DC in his counter to see GI in two weeks. History as above. Patient with chronic constipation taking [id number] remedies. Remarks that has stool that has soft when it does happen Medication Reconciliation Allergies: Coded Allergies: No Known Allergies (Unverified , 01/19/25) Scheduled Allopurinol* (Allopurinol*), 300 MG PO DAILY, (Reported) Aspirin (Aspirin), 1 TAB PO DAILY, (Reported) Clopidogrel Bisulfate (Clopidogrel), 1 TABLET PO DAILY, (Reported) Finasteride (PROSCAR tablet), 1 TAB PO DAILY, (Reported) Furosemide (Furosemide), 1 TAB PO DAILY, (Reported) Gabapentin (Neurontin), 1 CAP PO HS Isosorbide Mononitrate (Isosorbide Mononitrate Er), 1 TAB PO DAILY, (Reported) Lisinopril (Lisinopril), 1 TAB PO DAILY, (Reported) Metoprolol Succinate (Metoprolol Succinate), 0.5 TAB PO DAILY, (Reported) Scheduled PRN Nitroglycerin SL* (Nitrostat SL*), 1 TAB SL Q5MIN PRN for Chest pain Q5min PRNx3-call MD, (Reported) Past Medical History Past Medical History: Coronary Artery Disease, High Cholesterol, Hypertension, Hemorrhoids, Manohar's Disease, Diabetes, Arthritis, Gout, Anxiety, Depression, Panic Disorder Past Surgical History: coronary bypass surgery, orthopedic surgeries Patient History: (Cancer) Malignant carcinoid tumor FATHER, , Age: 82, Cause: Lymphoma Alcohol Use: Occasionally Drug Use: none Lives with: Alone Lives In: Home Occupation: retired Review of Systems ROS All review of systems negative except as per HPI Physical Exam Vital Signs: Temperature: 98.5, Source: Temporal, Heart Rate: 87, Respiratory Rate: 16, BP: 196/94, Pulse Oximetry: 97, Weight: 107.200 Oxygen Flow Rate: 0 Physical Exam General: Patient is awake, alert, oriented x4 in no acute distress and well appearing.~ Head: Normocephalic and atraumatic. Eyes: Conjunctival normal. EOMI. PERRL. ENT: Mucous membranes moist. Neck: Supple, trachea is midline. Chest: Clear to auscultation bilaterally without rales, rhonchi, or wheezes. There is no accessory muscle use or retractions. Cardiac: RRR without murmurs, gallops, or rubs. Abd: Soft, nondistended, nontender, with normoactive bowel sounds. No guarding, rebound, or rigidity. General Appearance: alert Gastrointestinal: No: tenderness, rebound, guarding, rigidity Progress Results/Orders Results/Orders Vital Signs 06/09/25 22:18 Temp 98.5 Pulse 87 Resp 16 B/P (MAP) 196/94 Pulse Ox 97 O2 Flow Rate 0 Medical Decision Making Findings Medical screening examination completed. Patient warrants and then pelvis CT without con to evaluate for obstruction, tumor mass with little to no suspicion for diverticulitis. KUB screening shows stool without obvious obstruction. Patient presented to the emergency room with concerns for possible constipation with stool changes. Differentials were vas including tumor constipation impaction colitis therefore CT scan performed which does show colitis. He has absolutely no abdominal pain even with palpation over this area of concern on CT. He denies any history of loose stools. I do not feel he requires antibiotics. He has excellent follow up in two weeks with GI doctor.. Diff Dx GI Bleed:Consideration: Include: AE fistula, Angiodysplasia, Bleeding diathesis, Blood loss anemia, Carcinoma, Diverticulosis, Diverticulitis, Esophageal varicies, Esophagitis, Gastritis, Gastroenteritis, Inflammatory BD, Grace-Flores syndrome, Meckel's diverticulum, PUD, Other Diff Dx Pain:Considerations: Include: AAA, Angina/IL, Aortic dissection, Appendicitis, Bowel obstruction, Cholangitis, Cholecystitis, Cholelithasis, Constipation, Diverticular disease, Esophageal rupture, Esophagitis, Gastritis, Gastroenteritis, GI hemorrhage, Hepatitis, Hernia, Inflammatory BD, Ischemic bowel, Mass, Pancreatitis, Porphyria, PUD, Testicular torsion, Trauma, intraabdominal, Urinary obstruction, Urinary tract infection, Urolithiasis, Other Diff Dx N/V/D:Considerations: Include: Appendicitis, Bowel obstruction, Dehydration, DKA, Diarrhea - bacterial, Diarrhea - parasitic, Diarrhea - viral, Diverticulitis, Diverticulosis, Drug toxicity, Electrolyte imbalance, Food poisoning, Gastroenteritis, GE reflux, GI bleed, Hepatitis, Hernia, Hypovolemia, Hypotension, Inflammatory BD, Impaction, Malnutrition, Pancreatitis, PUD, Renal failure, Urinary obstruction, UTI, Urolithiasis, Other Diff Dx Rectal:Considerations: Include: Fissure, Fistula, Foreign body, Impaction, Perirectal abscess, Prostatitis, Rectal prolapse, Subcutaneous abscess, Thrombosed hemorrhoid, Ulcer, UTI, Other Departure Disposition: HOME / SELF CARE / HOMELESS Impression: Primary Impression: Constipation Condition: Stable Discharge Instructions: Constipation, Adult Referrals: NO PRIMARY CARE PROVIDER (PCP) Signature Scribe Signature: No scribe Attestation: The note accurately reflects work and decisions made by me.Rohan Sainz MD 06/10/25 00:38 JOSE SALINAS PAC Jun 09, 2025 23:37 ROHAN SAINZ MD Jun 10, 2025 00:11
--- NOTE | 2025-06-10 00:16 | RADIOLOGY REPORT ---
EXAM: CT CT ABDOMEN PELVIS History: Change in stool caliber constipaion Comparison Study: DI ABDOMEN,SINGLE VIEW(KUB) on DOS: 06/09/25, DI ABDOMEN,SINGLE VIEW(KUB) on DOS: 01/04/25 TECHNIQUE: Multidetector spiral CT of the abdomen was performed from lung bases to pubic symphysis. Imaging was performed without IV contrast. Axial, coronal and sagittal multiplanar reformats were obtained from the axial data set by the technologist. Radiation Dose : 1. Abdomen/Pelvis: CTDIvol 36.37 mGy, DLP 1951.95 mGy*cm. FINDINGS: Evaluation of solid organs is limited due to lack of intravenous contrast use. Lung Bases: No acute or significant lung base finding. Normal heart size. No pleural or pericardial effusion. Liver: Cirrhotic liver. Gallbladder and Biliary Tree: Enlarged measuring 15.5 cm. Spleen: Unremarkable Pancreas: The pancreas is grossly normal in appearance. Adrenal Glands: Unremarkable Kidneys: Bilateral renal cysts. Bladder: Grossly unremarkable for degree of distention. Bowel: Mild thickening of the colon at the hepatic flexure with mild surrounding inflammatory changes. No obstruction. Ascites: Absent Lymphadenopathy: No mesenteric, retroperitoneal or periportal lymphadenopathy. Abdominal Wall and Mesentery: Unremarkable. Vasculature: The visualized abdominal aorta is normal in size and caliber. Evaluation of abdominal and pelvic vessels is limited due to lack of intravenous contrast. Pelvic Organs: Unremarkable Musculoskeletal: No aggressive focal bony lesions, acute fractures or dislocation. IMPRESSION: Mild focal thickening of the colon at the hepatic flexure with mild surrounding edema presumably representing a mild colitis. Suggest endoscopic correlation when the acute illness has subsided. Radiation optimization: All CT scans at this facility use at least one of these dose optimization techniques: automated exposure control mA and/or kV adjustment per patient size (includes targeted exams where dose is matched to clinical indication) or iterative reconstruction.
[2025-06-10 00:51] VITALS: BP 186/92; PULSE 86; RESP 18; TEMP 98.6; O2SAT 99
== END 2025-06-10 00:53 | disposition home or self-care (01) ==
LOC: ER 22:14
DX: K59.00 Constipation, unspecified (principal); E11.9 Type 2 diabetes mellitus without complications; E78.00 Pure hypercholesterolemia, unspecified; I10 Essential (primary) hypertension; I25.10 Atherosclerotic heart disease of native coronary artery without angina pectoris; M19.90 Unspecified osteoarthritis, unspecified site; F41.9 Anxiety disorder, unspecified; F32.A Depression, unspecified; Z95.1 Presence of aortocoronary bypass graft; Z87.19 Personal history of other diseases of the digestive system; Z79.82 Long term (current) use of aspirin; Z79.899 Other long term (current) drug therapy; Z72.89 Other problems related to lifestyle; Z60.2 Problems related to living alone
CPT/HCPCS: 74018; 74176; 99284